=== PATIENT | female | born 1985 | race African-American/Black ===

== ENCOUNTER 2021-05-12 05:08 | Inpatient (IN) | payer BC ==
[2021-05-12] MEDS ORDERED: Methylergonovine 0.2 MG/1 ML Amp IM PRN (05:23)
[2021-05-12] MEDS ORDERED: Sodium Chloride 0.9% 2.5 ML Syringe FLUSH PRN (05:23)
[2021-05-12] MEDS ORDERED: Lidocaine 1% 50 ML MDV INJECT PRN (05:23)
[2021-05-12] MEDS ORDERED: Terbutaline 1 MG/ML SDV SUBCUT PRN (05:23)
[2021-05-12] MEDS ORDERED: Tranexamic Acid 1,000 MG in Sodium Chloride 0.9% 100 ML IV PRN (05:23)
[2021-05-12] MEDS ORDERED: Ondansetron 4 MG/2 ML SDV IVPUSH PRN (05:23)
[2021-05-12] MEDS ORDERED: Misoprostol 200 MCG Tab PO PRN (05:23)
[2021-05-12] MEDS ORDERED: Nalbuphine 10 MG/1 ML Vial IVPUSH PRN (05:23)
[2021-05-12] MEDS ORDERED: Water For Irrigation,Sterile 1,000 ML Container IRR PRN (05:23)
[2021-05-12] MEDS ORDERED: Carboprost Tromethamine 250 MCG/1 ML Amp IM PRN (05:23)
[2021-05-12] MEDS ORDERED: Butorphanol 1 MG/ML SDV IVPUSH PRN (05:23)
[2021-05-12] MEDS ORDERED: Sodium Chloride 0.9% 10 ML SDV IV PRN (05:23)
[2021-05-12] MEDS ORDERED: Sodium Chloride 0.9% 10 ML Syringe FLUSH PRN (05:23)
[2021-05-12] MEDS ORDERED: Oxytocin/0.9 % Sodium Chloride 30 UNIT/500 ML BAG IV SCH ×2 (05:30)
[2021-05-12] MEDS ORDERED: Misoprostol 25 MCG (1/4 of 100 MCG) Tab VAG PRN (06:00)
[2021-05-12] MEDS: Lactated Ringers 1,000 ML IV SCH ×2 (07:00→23:45)
[2021-05-12] MEDS ORDERED: Acetaminophen 500 MG Tab PO PRN (08:26)
[2021-05-12 09:42] LABS: BLOOD UREA NITROGEN,BUN 8 mg/dL (7.0-18.0); CARBON DIOXIDE,CO2 18.7 mmol/L (21.0-32.0); CHLORIDE,CL 104 mmol/L (98-107); GLUCOSE RANDOM 80 mg/dL (74-106); POTASSIUM,K 4.4 mmol/L (3.5-5.1); SODIUM,NA 136 mmol/L (136-145)
[2021-05-12] MEDS: Misoprostol 25 MCG (1/4 of 100 MCG) Tab VAG PRN ×3 (09:59→19:10)
[2021-05-13] MEDS ORDERED: Bupivacaine 0.25% 30 ML SDV ONE
[2021-05-13] MEDS ORDERED: Ropivacaine HCl/PF 200 ML ONE
--- NOTE | 2021-05-13 00:33 | PCM.PREANE ---
Preanesthetic Assessment - Anesthesia/Transfusion/Family Hx Anesthesia History: No Prior Anesthesia Family History of Anesthesia Reaction: No Transfusion History: No Prior Transfusion(s) - Review of Systems General: No Symptoms Pulmonary: No Symptoms Cardiovascular: No Symptoms Gastrointestinal: No Symptoms Neurological: No Symptoms Other: Reports: None - Physical Assessment Height: 5 ft 3 in Weight: 195 lb ASA Class: 2 Mental Status: Alert & Oriented x3 Airway Class: Mallampati = 3 Dentition: Reports: Normal Dentition ROM/Head Extension: Full Lungs: Clear to Auscultation, Normal Respiratory Effort Cardiovascular: Regular Rate, Regular Rhythm - Lab Values: Laboratory Last Values WBC 6.87 K/uL (4.0-11.0) 05/12/21 06:00 RBC 4.13 M/uL (4.30-5.90) L 05/12/21 06:00 Hgb 12.1 g/dL (12.0-16.0) 05/12/21 06:00 Hct 34.2 % (36.0-46.0) L 05/12/21 06:00 MCV 82.8 fL (80.0-98.0) 05/12/21 06:00 MCH 29.3 pg (27.0-32.0) 05/12/21 06:00 MCHC 35.4 g/dL (31.0-37.0) 05/12/21 06:00 RDW Std Deviation 44.9 fl (28.0-62.0) 05/12/21 06:00 RDW Coeff of Doris 15 % (11.0-15.0) 05/12/21 06:00 Plt Count 129 K/uL (150-400) L 05/12/21 06:00 MPV 11.50 fL (7.40-12.00) 05/12/21 06:00 Nucleated RBC % 0.0 /100WBC 05/12/21 06:00 Nucleated RBCs # 0 K/uL 05/12/21 06:00 Sodium 136 mmol/L (136-145) 05/12/21 06:00 Potassium 4.4 mmol/L (3.5-5.1) 05/12/21 06:00 Chloride 104 mmol/L (98-107) 05/12/21 06:00 Carbon Dioxide 18.7 mmol/L (21.0-32.0) L 05/12/21 06:00 BUN 8 mg/dL (7.0-18.0) 05/12/21 06:00 Creatinine 0.9 mg/dL (0.6-1.0) 05/12/21 06:00 Est Cr Clr Drug Dosing 70.11 mL/min 05/12/21 06:00 Estimated GFR (MDRD) > 60.0 ml/min 05/12/21 06:00 Glucose 80 mg/dL (74-106) 05/12/21 06:00 Calcium 8.9 mg/dL (8.5-10.1) 05/12/21 06:00 Total Bilirubin 0.1 mg/dL (0.2-1.0) L 05/12/21 06:00 AST 27 IU/L (15-37) 05/12/21 06:00 ALT 43 IU/L (14-63) 05/12/21 06:00 Alkaline Phosphatase 102 U/L (46-116) 05/12/21 06:00 Total Protein 5.9 g/dL (6.4-8.2) L 05/12/21 06:00 Albumin 2.9 g/dL (3.4-5.0) L 05/12/21 06:00 Globulin 3.0 g/dL (2.6-4.0) 05/12/21 06:00 Albumin/Globulin Ratio 1.0 (0.9-1.6) 05/12/21 06:00 Ur Random Creatinine 54.6 mg/dL 05/12/21 09:50 U Random Total Protein 15.3 mg/dL (<11.9) H 05/12/21 09:50 Protein/Creatinin Ratio 0.3 05/12/21 09:50 Blood Type O POSITIVE 05/12/21 06:00 Antibody Screen NEGATIVE 05/12/21 06:00 - Allergies Allergies/Adverse Reactions: Allergies Allergy/AdvReac Type Severity Reaction Status Date / Time No Known Allergies Allergy Verified 05/12/21 05:22 - Blood Blood Available: Yes Product(s) Available: PRBC - Anesthesia Plan Pre-Op Medication Ordered: None - Acknowledgements Anesthesia Type Planned: Epidural Pt an Appropriate Candidate for the Planned Anesthesia: Yes Alternatives and Risks of Anesthesia Discussed w Pt/Guardian: Yes Pt/Guardian Understands and Agrees with Anesthesia Plan: Yes PreAnesthesia Questionnaire Respiratory History: Reports: TB [employer] History: Reports: Hematologic History: Reports: Other (See Below) Other Hematologic History: Hep-B Positive - SUBSTANCE USE Tobacco Use Status *Q: Never Tobacco User Second Hand Smoke Exposure: No Recreational Drug Use History: No - HOME MEDS Home Medications: Home Meds Vits #93/Iron Fum/FA [ Formula Tablet] 1 tab PO DAILY 04/14/21 [History] - CURRENT (IN HOUSE) MEDS Current Meds: Current Medications Acetaminophen (Acetaminophen 500 Mg Tab) 1,000 mg PO Q6H PRN PRN Reason: headache Last Admin: 05/12/21 08:50 Dose: 1,000 mg Documented by: Butorphanol Tartrate (Butorphanol 1 Mg/Ml Sdv) 1 mg IVPUSH Q1H PRN PRN Reason: Pain (severe 7-10) Carboprost Tromethamine (Carboprost Tromethamine 250 Mcg/1 Ml Amp) 250 mcg IM ASDIRECTED PRN PRN Reason: Post Hemorrhage Oxytocin/Sodium Chloride (Oxytocin 30 Unit/500 Ml-Ns) 30 unit in 500 mls @ 500 mls/hr IV TITRATE ANGEL Tranexamic Acid 1,000 mg/ (Sodium Chloride) 110 mls @ 660 mls/hr IV ONETIME PRN PRN Reason: Bleeding Oxytocin/Sodium Chloride (Oxytocin 30 Unit/500 Ml-Ns) 30 unit in 500 mls @ 2 mls/hr IV TITRATE ANGEL; Protocol Lactated Ringer's (Ringers, Lactated) 1,000 mls @ 150 mls/hr IV ASDIRECTED ANGEL Last Admin: 05/12/21 23:45 Dose: 150 mls/hr Documented by: Lidocaine HCl (Lidocaine 1% 50 Ml Mdv) 50 ml INJECT ONETIME PRN PRN Reason: Laceration repair Methylergonovine Maleate (Methylergonovine 0.2 Mg/1 Ml Amp) 0.2 mg IM ASDIRECTED PRN PRN Reason: Post Hemorrhage Misoprostol (Misoprostol 200 Mcg Tab) 200 mcg PO ONETIME PRN PRN Reason: Post Hemorrhage Misoprostol (Misoprostol 25 Mcg (1/4 Of 100 Mcg) Tab) 25 mcg VAG ONETIME PRN PRN Reason: Cervical Ripening Last Admin: 05/12/21 06:01 Dose: 25 mcg Documented by: Misoprostol (Misoprostol 25 Mcg (1/4 Of 100 Mcg) Tab) 25 mcg VAG Q4H PRN PRN Reason: Cervical Ripening Last Admin: 05/12/21 19:10 Dose: 25 mcg Documented by: Nalbuphine HCl (Nalbuphine 10 Mg/1 Ml Vial) 10 mg IVPUSH Q1H PRN PRN Reason: Pain (severe 7-10) Ondansetron HCl (Ondansetron 4 Mg/2 Ml Sdv) 4 mg IVPUSH Q6H PRN PRN Reason: Nausea/Vomiting Sodium Chloride (Sodium Chloride 0.9% 10 Ml Syringe) 10 ml FLUSH ASDIRECTED PRN PRN Reason: Keep Vein Open Sodium Chloride (Sodium Chloride 0.9% 2.5 Ml Syringe) 2.5 ml FLUSH ASDIRECTED PRN PRN Reason: Keep Vein Open Sodium Chloride (Sodium Chloride 0.9% 10 Ml Sdv) 10 ml IV ASDIRECTED PRN PRN Reason: IV Use Sterile Water (Water For Irrigation,Sterile 1,000 Ml Container) 1,000 ml IRR ASDIRECTED PRN PRN Reason: delivery Terbutaline Sulfate (Terbutaline 1 Mg/Ml Sdv) 0.25 mg SUBCUT ASDIRECTED PRN PRN Reason: Tacysystole Discontinued Medications Bupivacaine HCl (Bupivacaine 0.25% 30 Ml Sdv) Confirm Administered Dose 30 ml .ROUTE .STK-MED ONE Stop: 05/13/21 00:01 Ropivacaine (Naropin 0.2%) Confirm Administered Dose 200 mls @ as directed .ROUTE .STK-MED ONE Stop: 05/13/21 00:01 - Pre-Procedure Checklist Attending Provider Aware: Yes Chart Reviewed: Yes Consent Signed: Yes Labs Reviewed: Yes VS/FHR Reviewed: Yes Patient Identification Confirmation Method: Reports: Verbal Patient Pt an Appropriate Candidate for the Planned Anesthesia: Yes Alternatives and Risks of Anesthesia Discussed w Pt/Guardian: Yes - Procedure Procedure Start Date: 05/13/21 Procedure Start Time: 00:[address]: Reports: Blood Pressure, Heart Rate, SPO2 Functional IV: Yes Safety Measures: Reports: Patient Identified, Procedure Verified, Site Verified, Procedure Time Out Patient Position: Reports: Sitting Prep: Reports: Betadine x3, Sterile Drape Local Anesthetic: Reports: Intradermal Wheal w Lidocaine 1% Regional Placement Level: Reports: L3-4 Needle: Reports: 17 g Touhy Approach: Reports: Midline Technique: Reports: RICHARD Plastic Syringe Parasthesia: Reports: None Fluid Obtained: Reports: None Test Dose Time: 00:11 Test Dose Medication: Reports: Lidocaine 1.5% w Epinephrine 1:200,000 Test Dose Response: Reports: Negative Loading Dose Time: 00:10 Loading Dose Medication: bupivicaine 0.25% 10cc Loading Dose Patient Position: sitting Continuous Infusion Start Time: 00:15 Continuous Infusion Medication: ropivicaine 0.2% Continuous Infusion Rate: 16 Continuous Infusion PCS Bolus Option: 5 Continuous Infusion Lockout Dose (cc/hr): 31 Patient Position Post Placement: Reports: Supline/FARA VS and FHR Monitored in Unit Post Placement: Yes Procedure End Date: 05/13/21 Procedure End Time: 01:02
[2021-05-13] MEDS: Lactated Ringers 1,000 ML IV SCH ×4 (02:50→18:34)
[2021-05-13] MEDS ORDERED: fentaNYL 100 MCG/2 ML SDV ONE ×2 (12:29→13:04)
[2021-05-13] MEDS ORDERED: ceFAZolin 2 GM in Premix Bag 1 BAG IV ONE (12:31)
[2021-05-13] MEDS ORDERED: Bupivacaine 0.5% 30 ML SDV ONE (12:31)
[2021-05-13] MEDS ORDERED: Citric Acid/Sodium Citrate Solution 30 ML Cup PO ONE (12:31)
[2021-05-13] MEDS ORDERED: Lactated Ringers 1,000 ML IV SCH (12:45)
[2021-05-13] MEDS ORDERED: Ondansetron 4 MG/2 ML SDV ONE ×2 (13:02→13:09)
[2021-05-13] MEDS ORDERED: Oxytocin 10 Units/1 ML SDV ONE (13:02)
[2021-05-13] MEDS ORDERED: Ketorolac 30 MG/ML SDV ONE (13:02)
[2021-05-13] MEDS ORDERED: Propofol 200 MG/20 ML SDV ONE (13:06)
[2021-05-13] MEDS ORDERED: Lidocaine 2% 5 ML SDV ONE (13:09)
[2021-05-13] MEDS ORDERED: Morphine PF 10 MG/10 ML SDV ONE (13:39)
[2021-05-13] MEDS ORDERED: Bisacodyl 10 MG Supp RECTAL PRN (14:16)
[2021-05-13] MEDS ORDERED: Misoprostol 200 MCG Tab RECTAL PRN (14:16)
[2021-05-13] MEDS ORDERED: Methylergonovine 0.2 MG/1 ML Amp IM PRN (14:16)
[2021-05-13] MEDS ORDERED: Acetaminophen/oxyCODONE 325-5 MG Tab PO PRN (14:16)
[2021-05-13] MEDS ORDERED: Lanolin 100% Cream 7 GM Tube TOP PRN (14:16)
[2021-05-13] MEDS ORDERED: Tranexamic Acid 1,000 MG in Sodium Chloride 0.9% 100 ML IV PRN (14:16)
--- NOTE | 2021-05-13 14:25 | PCM.OPNOTE ---
<Maria Luisa Rodriguez - Last Filed: 05/13/21 14:25> - General Post-Op/Procedure Note Date of Surgery/Procedure: 05/13/21 Operative Procedure(s): Primary Section Pre Op Diagnosis: Single IUP at 39w4d. Hepatitis B. Persistent category 2 tracing. Occiput posterior presentation Post-Op Diagnosis: Same Anesthesia Technique: Epidural Primary Surgeon: Garrison Pillai Anesthesia Provider: Shilo Fernandez Editor Sound: Maria Luisa Rodriguez Pathology: Placenta Output, Urine Amount: 200 EBL in mLs: 700 Complications: None Condition: Good Free Text/Narrative:: 36 year old with persistent category 2 tracing. S/p primary LTCS day 0. Stable postoperatively. - Hepatitis B positive, Latent TB - O positive, Rubella immune, GBS negative - Routine postop care - Encourage ambulation - Remove ruiz after 12 hours - Continue to monitor bleeding and overall status <Garrison Pillai - Last Filed: 05/13/21 23:02> - General Post-Op/Procedure Note Free Text/Narrative:: Intake & Output 05/13/21 05/13/21 05/14/21 14:59 22:59 06:59 Output Total 300 Balance -300
[2021-05-13] MEDS: Ketorolac 30 MG/ML SDV IVPUSH SCH ×2 (15:50→19:34)
[2021-05-13] MEDS: Docusate Sodium 100 MG Cap PO SCH (21:00)
--- NOTE | 2021-05-13 23:41 | OR ---
SURGEON: Garrison Pillai MD DATE OF PROCEDURE: 05/13/2021 INDICATION FOR PROCEDURE: A 36-year-old G3, P0-0-2-0 at 39 weeks and 5 days presented with induction of labor. was complicated by diagnosis of hepatitis B. She had low viral load, the most recent one was 116. She had normal liver function tests. She saw Infectious Disease and did not require treatment. Plan is for followup . was also complicated by advanced maternal age. She is GBS negative. On admission, she was found to have mild thrombocytopenia with a platelets of 129. She received 4 doses of Cytotec for induction of labor and became 1 to 2 cm dilated. A Vyas balloon was then placed and expelled. Pitocin was started for induction. She received an epidural with good pain control. She progressed to 6 cm dilated and -2 station; however, the baby started to have category 2 tracing with periods of minimal variability, which initially responded to lowering the Pitocin. The Pitocin was then slowly increased and the baby continued to have persistent category 2 tracing. After about 4 hours, she did not make further cervical change. On exam, the baby was in direct occiput posterior presentation. Discussed with the patient that considering the heart rate was nonreassuring and she is remote from delivery, would recommend proceeding with primary low-transverse section. She was agreeable to proceed. PREOPERATIVE DIAGNOSES: 1. Prasad intrauterine at 39 weeks and 5 days. 2. Chronic hepatitis B. 3. Persistent category 2 tracing. 4. Occiput posterior presentation. 5. Advanced maternal age. POSTOPERATIVE DIAGNOSES: 1. Prasad intrauterine at 39 weeks and 5 days. 2. Chronic hepatitis B. 3. Persistent category 2 tracing. 4. Occiput posterior presentation. 5. Advanced maternal age. PROCEDURE PERFORMED: Primary low-transverse section. GAME ADVISOR: Maria Luisa Josue MS-4. ANESTHESIOLOGIST: Dr. Shilo Fernandez. ANESTHESIA: Epidural. FINDINGS: Viable male infant. score of 8 and 9. Weight of 8 pounds and 3 ounces. The baby was in direct occiput posterior presentation. ESTIMATED BLOOD LOSS: 700 mL. DESCRIPTION OF PROCEDURE: The procedure was discussed with the patient including the risks of bleeding, infection, DVTs, and injury to surrounding organs including bladder, bowel and ureter. The patient expressed understanding. Consent signed. The patient was brought to the operating room. She received 2 g of Ancef for prophylaxis and SCDs. Epidural anesthesia was already in place and topped off. The Vyas catheter was already in place. The vagina was prepped with Betadine. The abdomen was prepped with chlorhexidine in sterile fashion, then draped and tested for anesthesia. Epidural was adequate. Pfannenstiel incision was made with a scalpel and dissected down to fascia. Multiple sites of bleeding were noted and cauterized. The fascia was cleared of subcutaneous tissue. The fascia was incised in the midline and extended laterally with curved Gomez scissors. Geovany clamps were placed on the superior fascial edge. The rectus muscles were by blunt dissection and using Gomez scissors. The same process was repeated for the inferior fascial edge. The rectus muscles were in the midline bluntly. The peritoneum was identified, entered bluntly and stretched. The Kishore O retractor was placed in the peritoneal cavity. The bladder was noted to be away from the lower uterine segment. The uterus was incised transversely using the scalpel at the lower uterine segment and extended bluntly. Clear amniotic fluid was noted. The infant's head was noted to be in direct occiput posterior position and extended. I was not able to elevate the 's head out of the pelvis directly, therefore the infant's head was turned to an occiput anterior position before flexing the head and bringing it through the hysterotomy. Fundal pressure was then applied. The shoulder and body delivered without difficulty. The umbilical cord was clamped and cut after 60 seconds and no longer pulsating. The baby was initially pale and did not cry. Umbilical cord was clamped and cut and handed off to nursery staff. The baby then began to cry. The umbilical cord gases were obtained. The placenta was delivered with gentle traction on the umbilical cord and fundal message. It was examined to be intact with 3-vessel cord. A clean lap was used to remove all remaining membranes from the uterine cavity. Allis clamps were used to grasp the angles and lower edges of the incision. The uterine incision was closed in 2 layers; the 1st layer in running locking fashion using 0 Monocryl, the 2nd layer in a vertical imbricated fashion with 0 Vicryl. There was small amount of bleeding near the midline. Two [id number] stitches were placed at the site of bleeding and hemostasis was confirmed. The paracolic gutters were cleaned of any clots. The incision was irrigated and checked again for hemostasis. The peritoneum was grasped by hemostats and brought together to the midline. It was reapproximated using 2-0 Vicryl in running fashion. The rectus muscle was reapproximated in the midline with mattress stitches using 2-0 Vicryl. The rectus muscle was carefully examined and was found to be hemostatic. The fascia was closed using 2-0 Vicryl sutures in running fashion. Subcutaneous tissue was irrigated and bleeding areas were cauterized. The subcutaneous layer was brought together with 2-0 plain in running fashion. The skin was closed subcuticularly using 0 Monocryl on a Juan needle. A pressure dressing was placed over the incision. The patient was stable and transferred to recovery room. DAYSI ORDAZ /[id number] MTDD
[2021-05-14] MEDS: Ketorolac 30 MG/ML SDV IVPUSH SCH ×4 (01:28→20:28)
[2021-05-14] MEDS: diphenhydrAMINE 50 MG/ML SDV IVPUSH PRN ×2 (04:36→10:53)
[2021-05-14] MEDS: Nalbuphine 10 MG/1 ML Vial IVPUSH PRN ×2 (07:40→13:50)
[2021-05-14] MEDS: Docusate Sodium 100 MG Cap PO SCH ×2 (10:53→20:34)
--- NOTE | 2021-05-14 19:03 | PCM.PNPP ---
- General Info Date of Service: 05/14/21 Subjective Update: 36yo s/p Primary for arrest of dilation , POD1 Patient doing well, ambulating , voiding , tolerating regular diet , Normal lochia Functional Status: Reports: Pain Controlled, Tolerating Diet, Ambulating, Urinating - Review of Systems General: Reports: No Symptoms HEENT: Reports: No Symptoms Pulmonary: Reports: No Symptoms Cardiovascular: Reports: No Symptoms Gastrointestinal: Reports: No Symptoms Genitourinary: Reports: No Symptoms Musculoskeletal: Reports: No Symptoms Skin: Reports: No Symptoms Neurological: Reports: No Symptoms Psychiatric: Reports: No Symptoms - General Info Date of Service: 05/14/21 - Patient Data Vital Signs - Most Recent: Last Vital Signs Temp 36.1 C 05/14/21 16:00 Pulse 80 05/14/21 16:00 Resp 18 05/14/21 16:00 BP 116/79 05/14/21 16:00 Pulse Ox 100 05/14/21 16:00 Weight - Most Recent: 88.451 kg I&O - Last 24 Hours: Intake & Output 05/14/21 05/14/21 05/14/21 06:59 14:59 22:59 Output Total 1050 400 Balance -1050 -400 Lab Results - Last 24 Hours: Laboratory Results - last 24 hr 05/12/21 05/13/21 05/14/21 Range/Units 06:00 13:08 06:05 Hgb 10.8 L (12.0-16.0) g/dL Hct 30.4 L (36.0-46.0) % Cord ABG pH 7.200 (7.18-7.38) Cord ABG Base Excess -7 (-10--2) Cord VBG pH 7.221 L (7.25-7.45) Cord VBG Base Excess -7 (-10--2) RPR Non-Reac (Non-Reac) Med Orders - Current: Current Medications Acetaminophen (Acetaminophen 500 Mg Tab) 1,000 mg PO Q6H PRN PRN Reason: headache Last Admin: 05/12/21 08:50 Dose: 1,000 mg Documented by: Bisacodyl (Bisacodyl 10 Mg Supp) 10 mg RECTAL ONETIME PRN PRN Reason: Constipation Diphenhydramine HCl (Diphenhydramine 50 Mg/Ml Sdv) 25 mg IVPUSH Q6H PRN PRN Reason: Itching or Nausea Last Admin: 05/14/21 10:53 Dose: 25 mg Documented by: Docusate Sodium (Docusate Sodium 100 Mg Cap) 100 mg PO BID ANGEL Last Admin: 05/14/21 10:53 Dose: 100 mg Documented by: Emollient Ointment (Lanolin 100% Cream 7 Gm Tube) 0 gm TOP ASDIRECTED PRN PRN Reason: Sore Nipples Last Admin: 05/14/21 07:49 Dose: 7 gm Documented by: Oxytocin/Sodium Chloride (Oxytocin 30 Unit/500 Ml-Ns) 30 unit in 500 mls @ 2 mls/hr IV TITRATE ANGEL; Protocol Last Titration: 05/13/21 12:03 Dose: 0 munits/min, 0 mls/hr Documented by: Lactated Ringer's (Ringers, Lactated) 1,000 mls @ 500 mls/hr IV BOLUS ANGEL Tranexamic Acid 1,000 mg/ (Sodium Chloride) 110 mls @ 660 mls/hr IV ONETIME PRN PRN Reason: Bleeding Ibuprofen (Ibuprofen 800 Mg Tab) 800 mg PO Q8H PRN PRN Reason: mild pain or fever Methylergonovine Maleate (Methylergonovine 0.2 Mg/1 Ml Amp) 0.2 mg IM ONETIME PRN PRN Reason: Excessive Vaginal Bleeding Misoprostol (Misoprostol 25 Mcg (1/4 Of 100 Mcg) Tab) 25 mcg VAG ONETIME PRN PRN Reason: Cervical Ripening Last Admin: 05/12/21 06:01 Dose: 25 mcg Documented by: Misoprostol (Misoprostol 25 Mcg (1/4 Of 100 Mcg) Tab) 25 mcg VAG Q4H PRN PRN Reason: Cervical Ripening Last Admin: 05/12/21 19:10 Dose: 25 mcg Documented by: Misoprostol (Misoprostol 200 Mcg Tab) 1,000 mcg RECTAL ONETIME PRN PRN Reason: excessive bleeding Nalbuphine HCl (Nalbuphine 10 Mg/1 Ml Vial) 5 mg IVPUSH Q6H PRN PRN Reason: Itching Last Admin: 05/14/21 13:50 Dose: 5 mg Documented by: Oxycodone/Acetaminophen (Acetaminophen/Oxycodone 325-5 Mg Tab) 1 tab PO Q4H PRN PRN Reason: Pain (severe 7-10) Oxycodone/Acetaminophen (Acetaminophen/Oxycodone 325-5 Mg Tab) 2 tab PO Q4H PRN PRN Reason: Pain (severe 7-10) Sodium Chloride (Sodium Chloride 0.9% 10 Ml Syringe) 10 ml FLUSH ASDIRECTED PRN PRN Reason: Keep Vein Open Sodium Chloride (Sodium Chloride 0.9% 2.5 Ml Syringe) 2.5 ml FLUSH ASDIRECTED PRN PRN Reason: Keep Vein Open Sodium Chloride (Sodium Chloride 0.9% 10 Ml Sdv) 10 ml IV ASDIRECTED PRN PRN Reason: IV Use Terbutaline Sulfate (Terbutaline 1 Mg/Ml Sdv) 0.25 mg SUBCUT ASDIRECTED PRN PRN Reason: Tacysystole Discontinued Medications Bupivacaine HCl (Bupivacaine 0.25% 30 Ml Sdv) Confirm Administered Dose 30 ml .ROUTE .STK-MED ONE Stop: 05/13/21 00:01 Last Admin: 05/13/21 07:51 Dose: Not Given Documented by: Bupivacaine HCl (Bupivacaine 0.5% 30 Ml Sdv) Confirm Administered Dose 30 ml .ROUTE .STK-MED ONE Stop: 05/13/21 12:32 Last Admin: 05/13/21 15:50 Dose: Not Given Documented by: Butorphanol Tartrate (Butorphanol 1 Mg/Ml Sdv) 1 mg IVPUSH Q1H PRN PRN Reason: Pain (severe 7-10) Carboprost Tromethamine (Carboprost Tromethamine 250 Mcg/1 Ml Amp) 250 mcg IM ASDIRECTED PRN PRN Reason: Post Hemorrhage Citric Acid/Sodium Citrate (Citric Acid/Sodium Citrate Solution 30 Ml Cup) 30 ml PO ONETIME ONE Stop: 05/13/21 12:32 Last Admin: 05/13/21 15:50 Dose: Not Given Documented by: Fentanyl (Fentanyl 100 Mcg/2 Ml Sdv) Confirm Administered Dose 100 mcg .ROUTE .STK-MED ONE Stop: 05/13/21 12:30 Fentanyl (Fentanyl 100 Mcg/2 Ml Sdv) Confirm Administered Dose 100 mcg .ROUTE .STK-MED ONE Stop: 05/13/21 13:05 Oxytocin/Sodium Chloride (Oxytocin 30 Unit/500 Ml-Ns) 30 unit in 500 mls @ 500 mls/hr IV TITRATE [facility] Tranexamic Acid 1,000 mg/ (Sodium Chloride) 110 mls @ 660 mls/hr IV ONETIME PRN PRN Reason: Bleeding Lactated Ringer's (Ringers, Lactated) 1,000 mls @ 150 mls/hr IV ASDIRECTED [facility] Last Admin: 05/13/21 18:34 Dose: 125 mls/hr Documented by: Ropivacaine (Naropin 0.2%) Confirm Administered Dose 200 mls @ as directed .ROUTE .STK-MED ONE Stop: 05/13/21 00:01 Last Admin: 05/13/21 07:51 Dose: Not Given Documented by: Cefazolin Sodium/Dextrose 2 gm (/ Premix) 50 mls @ 100 mls/hr IV ONETIME ONE Stop: 05/13/21 13:00 Last Admin: 05/13/21 15:50 Dose: Not Given Documented by: Ketorolac Tromethamine (Ketorolac 30 Mg/Ml Sdv) Confirm Administered Dose 30 mg .ROUTE .STK-MED ONE Stop: 05/13/21 13:03 Ketorolac Tromethamine (Ketorolac 30 Mg/Ml Sdv) 30 mg IVPUSH Q6H [facility] Stop: 05/14/21 14:31 Last Admin: 05/14/21 13:50 Dose: 30 mg Documented by: Lidocaine (Lidocaine 2% 5 Ml Sdv) Confirm Administered Dose 5 ml .ROUTE .STK-MED ONE Stop: 05/13/21 13:10 Lidocaine HCl (Lidocaine 1% 50 Ml Mdv) 50 ml INJECT ONETIME PRN PRN Reason: Laceration repair Methylergonovine Maleate (Methylergonovine 0.2 Mg/1 Ml Amp) 0.2 mg IM ASDIREC GUNNAR PRN PRN Reason: Post Hemorrhage Miscellaneous Medication (Phenylephrine Hcl In 0.9% Nacl 1 Mg/10 Ml Syringe) Confirm Administered Dose 1 mg .ROUTE .STK-MED ONE Stop: 05/13/21 13:03 Misoprostol (Misoprostol 200 Mcg Tab) 200 mcg PO ONETIME PRN PRN Reason: Post Hemorrhage Morphine Sulfate (Morphine Pf 10 Mg/10 Ml Sdv) Confirm Administered Dose 10 mg .ROUTE .STK-MED ONE Stop: 05/13/21 13:40 Nalbuphine HCl (Nalbuphine 10 Mg/1 Ml Vial) 10 mg IVPUSH Q1H PRN PRN Reason: Pain (severe 7-10) Ondansetron HCl (Ondansetron 4 Mg/2 Ml Sdv) 4 mg IVPUSH Q6H PRN PRN Reason: Nausea/Vomiting Ondansetron HCl (Ondansetron 4 Mg/2 Ml Sdv) Confirm Administered Dose 4 mg .ROUTE .STK-MED ONE Stop: 05/13/21 13:03 Ondansetron HCl (Ondansetron 4 Mg/2 Ml Sdv) Confirm Administered Dose 4 mg .[place] .STK-MED ONE Stop: 05/13/21 13:10 Oxytocin (Oxytocin 10 Units/1 Ml Sdv) Confirm Administered Dose 30 unit .ROUTE .STK-MED ONE Stop: 05/13/21 13:03 Propofol (Propofol 200 Mg/20 Ml Sdv) Confirm Administered Dose 200 mg .ROUTE .STK-MED ONE Stop: 05/13/21 13:07 Sterile Water (Water For Irrigation,Sterile 1,000 Ml Container) 1,000 ml IRR ASDIRECTED PRN PRN Reason: delivery - Recovery Exam Fundal Tone: Firm Fundal Level: 1 Fingerbreadths Below Umbilicus Fundal Placement: Midline Lochia Amount: Scant Lochia Color: Rubra/Red Bladder Status: Indwelling Catheter in Place Urinary Elimination: Voided - Exam General: Alert HEENT: Pupils Equal Neck: Supple Lungs: Clear to Auscultation Cardiovascular: Regular Rate, Regular Rhythm GI/Abdominal Exam: Normal Bowel Sounds Extremities: Normal Inspection Neurological: No New Focal Deficit Psy/Mental Status: Alert - Problem List & Annotations (1) delivery delivered SNOMED Code(s): 200658005 Code(s): O82 - ENCOUNTER FOR DELIVERY WITHOUT INDICATION Status: Acute Current Visit: Yes (2) Hepatitis B affecting SNOMED Code(s): 835213460 Code(s): O98.419 - VIRAL HEPATITIS COMPLICATING , UNSP TRIMESTER; B19.10 - UNSPECIFIED VIRAL HEPATITIS B WITHOUT HEPATIC COMA Status: Acute Current Visit: Yes - Problem List Review Problem List Initiated/Reviewed/Updated: Yes - Assessment Assessment:: 36yo P1 s/p primary for AOD , POD 1 Chronic Hepatitis B ( low viral load) - Plan Plan:: Routine care Continue ambulation Pain control as needed RH positive , Rubella Immune Incentive spirometry SCD when in bed Discharge home tomorrow
[2021-05-14] MEDS ORDERED: Ketorolac 30 MG/ML SDV ONE (20:21)
[2021-05-14] MEDS ORDERED: Ibuprofen 800 MG Tab PO PRN (20:30)
[2021-05-15] MEDS: Acetaminophen/oxyCODONE 325-5 MG Tab PO PRN ×2 (05:28→14:10)
--- NOTE | 2021-05-15 05:53 | PCM.PNPP ---
- General Info Date of Service: 05/15/21 Subjective Update: 36yo s/p Primary for arrest of dilation , POD2 Patient doing well, ambulating , voiding , tolerating regular diet , Normal lochia Functional Status: Reports: Pain Controlled, Tolerating Diet, Ambulating, Urinating - Review of Systems General: Reports: Fatigue. Denies: Fever, Weakness Pulmonary: Denies: Shortness of Breath Cardiovascular: Denies: Chest Pain, Palpitations, Lightheadedness Gastrointestinal: Reports: Abdominal Pain (controlled with oral pain meds). Denies: Nausea, Vomiting Genitourinary: Denies: Flank Pain Musculoskeletal: Reports: No Symptoms Skin: Reports: No Symptoms Neurological: Reports: No Symptoms Psychiatric: Reports: No Symptoms - General Info Date of Service: 05/15/21 - Patient Data Vital Signs - Most Recent: Last Vital Signs Temp 36.3 C 05/15/21 00:00 Pulse 74 05/15/21 00:00 Resp 16 05/15/21 00:00 BP 125/62 05/15/21 00:00 Pulse Ox 99 05/15/21 00:00 Weight - Most Recent: 88.451 kg I&O - Last 24 Hours: Intake & Output 05/14/21 05/14/21 05/15/21 14:59 22:59 06:59 Output Total 400 Balance -400 Lab Results - Last 24 Hours: Laboratory Results - last 24 hr 05/12/21 05/14/21 Range/Units 06:00 06:05 Hgb 10.8 L (12.0-16.0) g/dL Hct 30.4 L (36.0-46.0) % RPR Non-Reac (Non-Reac) Med Orders - Current: Current Medications Acetaminophen (Acetaminophen 500 Mg Tab) 1,000 mg PO Q6H PRN PRN Reason: headache Last Admin: 05/12/21 08:50 Dose: 1,000 mg Documented by: Bisacodyl (Bisacodyl 10 Mg Supp) 10 mg RECTAL ONETIME PRN PRN Reason: Constipation Diphenhydramine HCl (Diphenhydramine 50 Mg/Ml Sdv) 25 mg IVPUSH Q6H PRN PRN Reason: Itching or Nausea Last Admin: 05/14/21 10:53 Dose: 25 mg Documented by: Docusate Sodium (Docusate Sodium 100 Mg Cap) 100 mg PO BID ANGEL Last Admin: 05/14/21 20:34 Dose: 100 mg Documented by: Emollient Ointment (Lanolin 100% Cream 7 Gm Tube) 0 gm TOP ASDIRECTED PRN PRN Reason: Sore Nipples Last Admin: 05/14/21 07:49 Dose: 7 gm Documented by: Oxytocin/Sodium Chloride (Oxytocin 30 Unit/500 Ml-Ns) 30 unit in 500 mls @ 2 mls/hr IV TITRATE ANGEL; Protocol Last Titration: 05/13/21 12:03 Dose: 0 munits/min, 0 mls/hr Documented by: Lactated Ringer's (Ringers, Lactated) 1,000 mls @ 500 mls/hr IV BOLUS ANGEL Tranexamic Acid 1,000 mg/ (Sodium Chloride) 110 mls @ 660 mls/hr IV ONETIME PRN PRN Reason: Bleeding Ibuprofen (Ibuprofen 800 Mg Tab) 800 mg PO Q8H PRN PRN Reason: mild pain or fever Methylergonovine Maleate (Methylergonovine 0.2 Mg/1 Ml Amp) 0.2 mg IM ONETIME PRN PRN Reason: Excessive Vaginal Bleeding Misoprostol (Misoprostol 25 Mcg (1/4 Of 100 Mcg) Tab) 25 mcg VAG ONETIME PRN PRN Reason: Cervical Ripening Last Admin: 05/12/21 06:01 Dose: 25 mcg Documented by: Misoprostol (Misoprostol 25 Mcg (1/4 Of 100 Mcg) Tab) 25 mcg VAG Q4H PRN PRN Reason: Cervical Ripening Last Admin: 05/12/21 19:10 Dose: 25 mcg Documented by: Misoprostol (Misoprostol 200 Mcg Tab) 1,000 mcg RECTAL ONETIME PRN PRN Reason: excessive bleeding Nalbuphine HCl (Nalbuphine 10 Mg/1 Ml Vial) 5 mg IVPUSH Q6H PRN PRN Reason: Itching Last Admin: 05/14/21 13:50 Dose: 5 mg Documented by: Oxycodone/Acetaminophen (Acetaminophen/Oxycodone 325-5 Mg Tab) 1 tab PO Q4H PRN PRN Reason: Pain (severe 7-10) Last Admin: 05/14/21 23:02 Dose: 1 tab Documented by: Oxycodone/Acetaminophen (Acetaminophen/Oxycodone 325-5 Mg Tab) 2 tab PO Q4H PRN PRN Reason: Pain (severe 7-10) Last Admin: 05/15/21 05:28 Dose: 2 tab Documented by: Sodium Chloride (Sodium Chloride 0.9% 10 Ml Syringe) 10 ml FLUSH ASDIRECTED PRN PRN Reason: Keep Vein Open Sodium Chloride (Sodium Chloride 0.9% 2.5 Ml Syringe) 2.5 ml FLUSH ASDIRECTED PRN PRN Reason: Keep Vein Open Sodium Chloride (Sodium Chloride 0.9% 10 Ml Sdv) 10 ml IV ASDIRECTED PRN PRN Reason: IV Use Terbutaline Sulfate (Terbutaline 1 Mg/Ml Sdv) 0.25 mg SUBCUT ASDIRECTED PRN PRN Reason: Tacysystole Discontinued Medications Bupivacaine HCl (Bupivacaine 0.25% 30 Ml Sdv) Confirm Administered Dose 30 ml .ROUTE .STK-MED ONE Stop: 05/13/21 00:01 Last Admin: 05/13/21 07:51 Dose: Not Given Documented by: Bupivacaine HCl (Bupivacaine 0.5% 30 Ml Sdv) Confirm Administered Dose 30 ml .ROUTE .STK-MED ONE Stop: 05/13/21 12:32 Last Admin: 05/13/21 15:50 Dose: Not Given Documented by: Butorphanol Tartrate (Butorphanol 1 Mg/Ml Sdv) 1 mg IVPUSH Q1H PRN PRN Reason: Pain (severe 7-10) Carboprost Tromethamine (Carboprost Tromethamine 250 Mcg/1 Ml Amp) 250 mcg IM ASDIRECTED PRN PRN Reason: Post Hemorrhage Citric Acid/Sodium Citrate (Citric Acid/Sodium Citrate Solution 30 Ml Cup) 30 ml PO ONETIME ONE Stop: 05/13/21 12:32 Last Admin: 05/13/21 15:50 Dose: Not Given Documented by: Fentanyl (Fentanyl 100 Mcg/2 Ml Sdv) Confirm Administered Dose 100 mcg .ROUTE .STK-MED ONE Stop: 05/13/21 12:30 Fentanyl (Fentanyl 100 Mcg/2 Ml Sdv) Confirm Administered Dose 100 mcg .ROUTE .STK-MED ONE Stop: 05/13/21 13:05 Oxytocin/Sodium Chloride (Oxytocin 30 Unit/500 Ml-Ns) 30 unit in 500 mls @ 500 mls/hr IV TITRATE ANGEL Tranexamic Acid 1,000 mg/ (Sodium Chloride) 110 mls @ 660 mls/hr IV ONETIME PRN PRN Reason: Bleeding Lactated Ringer's (Ringers, Lactated) 1,000 mls @ 150 mls/hr IV ASDIRECTED [facility] Last Admin: 05/13/21 18:34 Dose: 125 mls/hr Documented by: Ropivacaine (Naropin 0.2%) Confirm Administered Dose 200 mls @ as directed .ROUTE .STK-MED ONE Stop: 05/13/21 00:01 Last Admin: 05/13/21 07:51 Dose: Not Given Documented by: Cefazolin Sodium/Dextrose 2 gm (/ Premix) 50 mls @ 100 mls/hr IV ONETIME ONE Stop: 05/13/21 13:00 Last Admin: 05/13/21 15:50 Dose: Not Given Documented by: Ketorolac Tromethamine (Ketorolac 30 Mg/Ml Sdv) Confirm Administered Dose 30 mg .ROUTE .STK-MED ONE Stop: 05/13/21 13:03 Ketorolac Tromethamine (Ketorolac 30 Mg/Ml Sdv) 30 mg IVPUSH Q6H [facility] Stop: 05/14/21 14:31 Last Admin: 05/14/21 20:28 Dose: 30 mg Documented by: Ketorolac Tromethamine (Ketorolac 30 Mg/Ml Sdv) Confirm Administered Dose 30 mg .ROUTE .STK-MED ONE Stop: 05/14/21 20:22 Last Admin: 05/14/21 21:23 Dose: Not Given Documented by: Lidocaine (Lidocaine 2% 5 Ml Sdv) Confirm Administered Dose 5 ml .ROUTE .STK-MED ONE Stop: 05/13/21 13:10 Lidocaine HCl (Lidocaine 1% 50 Ml Mdv) 50 ml INJECT ONETIME PRN PRN Reason: Laceration repair Methylergonovine Maleate (Methylergonovine 0.2 Mg/1 Ml Amp) 0.2 mg IM ASDIRECTED PRN PRN Reason: Post Hemorrhage Miscellaneous Medication (Phenylephrine Hcl In 0.9% Nacl 1 Mg/10 Ml Syringe) Confirm Administered Dose 1 mg .ROUTE .STK-MED ONE Stop: 05/13/21 13:03 Misoprostol (Misoprostol 200 Mcg Tab) 200 mcg PO ONETIME PRN PRN Reason: Post Hemorrhage Morphine Sulfate (Morphine Pf 10 Mg/10 Ml Sdv) Confirm Administered Dose 10 mg .ROUTE .STK-MED ONE Stop: 05/13/21 13:40 Nalbuphine HCl (Nalbuphine 10 Mg/1 Ml Vial) 10 mg IVPUSH Q1H PRN PRN Reason: Pain (severe 7-10) Ondansetron HCl (Ondansetron 4 Mg/2 Ml Sdv) 4 mg IVPUSH Q6H PRN PRN Reason: Nausea/Vomiting Ondansetron HCl (Ondansetron 4 Mg/2 Ml Sdv) Confirm Administered Dose 4 mg .ROUTE .STK-MED ONE Stop: 05/13/21 13:03 Ondansetron HCl (Ondansetron 4 Mg/2 Ml Sdv) Confirm Administered Dose 4 mg .ROUTE .STK-MED ONE Stop: 05/13/21 13:10 Oxytocin (Oxytocin 10 Units/1 Ml Sdv) Confirm Administered Dose 30 unit .ROUTE .STK-MED ONE Stop: 05/13/21 13:03 Propofol (Propofol 200 Mg/20 Ml Sdv) Confirm Administered Dose 200 mg .ROUTE .STK-MED ONE Stop: 05/13/21 13:07 Sterile Water (Water For Irrigation,Sterile 1,000 Ml Container) 1,000 ml IRR ASDIRECTED PRN PRN Reason: delivery - Interaction Infant Disposition, : in Room with Family Infant Interaction: Holding Infant - Recovery Exam Fundal Tone: Firm Fundal Level: At Umbilicus Fundal Placement: Midline Lochia Amount: Scant, Small Lochia Color: Rubra/Red Perineum Description: Intact, Minimal Bruising/Swelling Bladder Status: Voiding Urinary Elimination: Voided - Exam General: Alert, Oriented Lungs: Normal Respiratory Effort Cardiovascular: Regular Rate, Regular Rhythm GI/Abdominal Exam: Normal Bowel Sounds, Soft Extremities: Non-Tender, Pedal Edema (1+). No: Gregg's Sign Skin: Warm, Dry, Intact Wound/Incisions: Healing Well Neurological: No New Focal Deficit Psy/Mental Status: Alert, Normal Affect, Normal Mood - Problem List & Annotations (1) delivery delivered SNOMED Code(s): 934492327 Code(s): O82 - ENCOUNTER FOR DELIVERY WITHOUT INDICATION Status: Acute Current Visit: Yes - Problem List Review Problem List Initiated/Reviewed/Updated: Yes - My Orders Last 24 Hours: My Active Orders 05/15/21 05:51 Ready for Discharge [RC] PER UNIT ROUTINE - Assessment Assessment:: 36yo P1 s/p primary for AOD , POD 2 Chronic Hepatitis B ( low viral load) - Plan Plan:: Doing well overall and VS are stable. Discharge instructions reviewed. Follow up at [facility] 2 and 6 weeks. Discharge to home today.
[2021-05-15] MEDS: Docusate Sodium 100 MG Cap PO SCH (08:59)
== END 2021-05-15 16:00 | disposition home or self-care (01) | DRG 540 ==
LOC: MW.OBCHECK 05:08 → MW.OB 05:15 → UNDOADMOB 05:23 → MW.OBCHECK 05:23 → MW.OB 05:23 → INTOOBSV 12:31 → OBSVTOIN 12:31 → MW.OB 05-13 13:05 → OBSVTOIN 05-13 13:05 → MW.OB 05-13 18:40 → UNDODISIN 05-15 16:00
PROVIDERS: ADMIT Obstetrics & Gynecology; ATTEND Obstetrics & Gynecology
PROC: 10D00Z1 Extraction of Products of Conception, Low, Open Approach (ICD-10-PCS; principal; 2021-05-12)
PROC: 10H07YZ Insertion of Other Device into Products of Conception, Via Natural or Artificial Opening (ICD-10-PCS; 2021-05-12)
PROC: 3E033VJ Introduction of Other Hormone into Peripheral Vein, Percutaneous Approach (ICD-10-PCS; 2021-05-12)
PROC: 3E0P7VZ Introduction of Hormone into Female Reproductive, Via Natural or Artificial Opening (ICD-10-PCS; 2021-05-12)
DX: O98.42 Viral hepatitis complicating childbirth (principal); O62.1 Secondary uterine inertia; B18.1 Chronic viral hepatitis B without delta-agent; Z37.0 Single live birth; Z3A.39 39 weeks gestation of pregnancy; O99.12 Other diseases of the blood and blood-forming organs and certain disorders involving the immune mechanism complicating childbirth; D69.6 Thrombocytopenia, unspecified
CPT/HCPCS: 01967; 01968; 36415; 59025; 80053; 82570; 82803; 84156; 85014; 85018; 85027; 86592; 86850; 86900; 86901; 88307; A9270-GY; J1200; J1885; J2270; J2300; J2370; J2405; J2590; J2704; J2795; J3010; J3490; J7120

== ENCOUNTER 2024-09-27 08:29 | Day surgery (SDC) | payer BC ==
[2024-09-27] MEDS ORDERED: propofoL 500 MG/50 ML 50 ML ONE (08:40)
[2024-09-27] MEDS ORDERED: Lidocaine 2% 5 ML SDV ONE (08:40)
[2024-09-27] MEDS: Lactated Ringers 1,000 ML IV SCH (09:30)
== END 2024-09-27 11:48 | disposition home or self-care (01) ==
LOC: MW.SDS 08:29
PROVIDERS: ATTEND Surgery
DX: K64.8 Other hemorrhoids (principal); E66.9 Obesity, unspecified
CPT/HCPCS: 00811; 81025; J2704; J3490; J7120